=== PATIENT | female | born 1950 | race Caucasian/White ===

== ENCOUNTER 2020-03-17 10:38 | Emergency (ER) | payer MEDICARE, BC ==
[~2020-03-17] VITALS: Ht 170.2 cm; Wt 81.7 kg
[2020-03-17] MEDS ORDERED: HYDR1TAB94 PO (11:54)
[2020-03-17] MEDS ORDERED: ONDA4ODT MM (11:54)
[2020-03-17] MEDS ORDERED: IBUP600 PO (11:54)
== END 2020-03-17 12:04 | disposition home or self-care (01) ==
LOC: ER 10:38
DX: S43.401A Unspecified sprain of right shoulder joint, initial encounter (principal); I10 Essential (primary) hypertension; X50.0XXA Overexertion from strenuous movement or load, initial encounter; Y93.K1 Activity, walking an animal
CPT/HCPCS: 73030; 96372; 99283-25; J1885